=== PATIENT | male | born 1990 | race Caucasian/White ===

== ENCOUNTER 2020-05-25 20:24 | Emergency (ER) | payer BC ==
[~2020-05-25] VITALS: Ht 193 cm; Wt 83.9 kg
[~2020-05-25 20:24] MED LIST: CLON.5 PO; MIRALAX17 GM PO; PANT40 PO; Prozac20 MG PO; TUMS500 MG PO
[2020-05-25 20:50] LABS: BASOPHILS ABSOLUTE AUTO 0.02 K/mm3 (0.00-0.23); BASOPHILS PERCENT AUTO 0 % (0-2); EOSINOPHILS ABSOLUTE AUTO 0.05 K/mm3 (0.00-0.68); EOSINOPHILS PERCENT AUTO 1 % (0-6); Hematocrit 47.3 % (37.0-53.0); Hemoglobin 16.1 g/dL (13.5-17.5); IMMATURE GRAN ABSOLUTE AUTO 0.02 K/mm3 (0.00-0.10); IMMATURE GRAN PERCENT AUTO 0 % (0-1); LYMPHOCYTES ABSOLUTE AUTO 2.54 K/mm3 (0.84-5.20); LYMPHOCYTES PERCENT AUTO 30 % (21-46); MONOCYTES ABSOLUTE AUTO 0.49 K/mm3 (0.16-1.47); MONOCYTES PERCENT AUTO 6 % (4-13); Mean Corpuscular HGB 28.9 pg (26.0-34.0); Mean Corpuscular Volume 85 fL (80-100); Mean Platelet Volume 9.8 fL (9.1-12.4); NEUTROPHILS ABSOLUTE AUTO 5.25 K/mm3 (1.96-9.15); NEUTROPHILS PERCENT AUTO 63 % (41-73); Platelet Count 266 K/mm3 (150-400); RDW Coefficient Variation 12.7 % (11.7-14.2); RDW Standard Deviation 39.8 fL (35.1-46.3); Red Blood Cell Count 5.58 M/mm3 (4.30-5.90); White Blood Cell Count 8.37 K/mm3 (4.00-11.30)
[2020-05-25 21:07] LABS: Alanine Aminotransfer (ALT/SGP 41 U/L (12-78); Albumin, Blood 4.6 g/dL (3.4-5.0); Albumin/Globulin Ratio 1.3 (0.8-1.8); Alk Phos 80 U/L (50-136); Anion Gap 7 mmol/L (6-16); Aspartate Aminotrans (AST/SGOT 18 U/L (12-37); Bilirubin, Total 0.5 mg/dL (0.1-1.0); Blood Urea Nitrogen 9 mg/dL (8-24); Bun/Creatinine Ratio 10.8 (12.0-20.0); CO2, Blood 26 mmol/L (21-32); Calcium, Blood 9.2 mg/dL (8.5-10.1); Chloride, Blood 109 mmol/L (98-108); Creatinine, Blood 0.83 mg/dL (0.60-1.20); Globulin, Blood 3.5 g/dL (2.2-4.0); Glomerular Filtration Rate >60 (60-); Glucose, Blood 100 mg/dL (70-99); Potassium, Blood 3.5 mmol/L (3.5-5.5); Sodium, Blood 142 mmol/L (136-145); Total Protein, Blood 8.1 g/dL (6.4-8.2)
[2020-05-25 21:52] LABS: Cholesterol 244 mg/dL (50-200); Triglycerides 167 mg/dL (30-140)
[2020-05-25] MEDS ORDERED: Roxicodone5 MG PO (22:36)
[2020-05-25] MEDS ORDERED: ONDA4ODT MM (22:36)
== END 2020-05-25 22:48 | disposition home or self-care (01) ==
LOC: ER 20:24
PROVIDERS: Emergency Medicine
DX: K85.90 Acute pancreatitis without necrosis or infection, unspecified (principal); Z79.899 Other long term (current) drug therapy
CPT/HCPCS: 36415; 80053; 82465; 83690; 84478; 85025; 96361; 96374; 96375; 99284-25; A9270; J1170; J1630; J2405; J7120

== ENCOUNTER → 2020-06-10 | Outpatient (CLI) | payer BC ==
[~2020-06-10] MED LIST changes: +Apple Cider Vi300 MG PO; +CENTRUM SILVER1 EAC2 PO; +ONDA4ODT MM; +Roxicodone5 MG PO
[2020-06-10 15:26] LABS: Alanine Aminotransfer (ALT/SGP 61 U/L (12-78); Albumin, Blood 4.2 g/dL (3.4-5.0); Albumin/Globulin Ratio 1.4 (0.8-1.8); Alk Phos 75 U/L (50-136); Anion Gap 1 mmol/L (6-16); Aspartate Aminotrans (AST/SGOT 25 U/L (12-37); Bilirubin, Total 0.4 mg/dL (0.1-1.0); Blood Urea Nitrogen 9 mg/dL (8-24); Bun/Creatinine Ratio 10.5 (12.0-20.0); CO2, Blood 32 mmol/L (21-32); Calcium, Blood 9.1 mg/dL (8.5-10.1); Chloride, Blood 107 mmol/L (98-108); Creatinine, Blood 0.86 mg/dL (0.60-1.20); Globulin, Blood 2.9 g/dL (2.2-4.0); Glomerular Filtration Rate >60 (60-); Glucose, Blood 92 mg/dL (70-99); Potassium, Blood 4.1 mmol/L (3.5-5.5); Sodium, Blood 140 mmol/L (136-145); Total Protein, Blood 7.1 g/dL (6.4-8.2)
== END ==
LOC: PLD 11:40 → LAB SHORT 11:40
PROVIDERS: Hospitalist
DX: K85.90 Acute pancreatitis without necrosis or infection, unspecified (principal)
CPT/HCPCS: 80053; 83690

== ENCOUNTER 2020-06-19 18:26 | Inpatient (IN) | payer BC ==
[~2020-06-19] VITALS: Ht 193 cm; Wt 86.5 kg
[~2020-06-19 18:26] MED LIST changes: -Apple Cider Vi300 MG PO; -CENTRUM SILVER1 EAC2 PO
[2020-06-19 19:05] LABS: BASOPHILS ABSOLUTE AUTO 0.03 K/mm3 (0.00-0.23); BASOPHILS PERCENT AUTO 0 % (0-2); EOSINOPHILS ABSOLUTE AUTO 0.04 K/mm3 (0.00-0.68); EOSINOPHILS PERCENT AUTO 1 % (0-6); Hematocrit 48.4 % (37.0-53.0); Hemoglobin 16.2 g/dL (13.5-17.5); IMMATURE GRAN ABSOLUTE AUTO 0.02 K/mm3 (0.00-0.10); IMMATURE GRAN PERCENT AUTO 0 % (0-1); LYMPHOCYTES ABSOLUTE AUTO 2.19 K/mm3 (0.84-5.20); LYMPHOCYTES PERCENT AUTO 28 % (21-46); MONOCYTES ABSOLUTE AUTO 0.42 K/mm3 (0.16-1.47); MONOCYTES PERCENT AUTO 5 % (4-13); Mean Corpuscular HGB Conc 33.5 g/dL (31.5-36.5); Mean Corpuscular Volume 87 fL (80-100); Mean Platelet Volume 9.7 fL (9.1-12.4); NEUTROPHILS ABSOLUTE AUTO 5.27 K/mm3 (1.96-9.15); NEUTROPHILS PERCENT AUTO 66 % (41-73); Platelet Count 251 K/mm3 (150-400); RDW Coefficient Variation 13.1 % (11.7-14.2); RDW Standard Deviation 41.7 fL (35.1-46.3); Red Blood Cell Count 5.58 M/mm3 (4.30-5.90); White Blood Cell Count 7.97 K/mm3 (4.00-11.30)
[2020-06-19 19:35] LABS: Alanine Aminotransfer (ALT/SGP 48 U/L (12-78); Albumin, Blood 4.7 g/dL (3.4-5.0); Albumin/Globulin Ratio 1.3 (0.8-1.8); Alk Phos 74 U/L (50-136); Anion Gap 5 mmol/L (6-16); Aspartate Aminotrans (AST/SGOT 19 U/L (12-37); Bilirubin, Total 0.5 mg/dL (0.1-1.0); Blood Urea Nitrogen 7 mg/dL (8-24); Bun/Creatinine Ratio 7.8 (12.0-20.0); CO2, Blood 28 mmol/L (21-32); Calcium, Blood 9.2 mg/dL (8.5-10.1); Chloride, Blood 107 mmol/L (98-108); Globulin, Blood 3.5 g/dL (2.2-4.0); Glomerular Filtration Rate >60 (60-); Glucose, Blood 98 mg/dL (70-99); Potassium, Blood 3.3 mmol/L (3.5-5.5); Sodium, Blood 140 mmol/L (136-145); Total Protein, Blood 8.2 g/dL (6.4-8.2)
--- NOTE | 2020-06-19 23:46 | NUR ---
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 NPO in acute pain, nauseated. On IV fluids & recieving Kt rider. Await admission.
[2020-06-20] MEDS ORDERED: CENTRUM SILVER1 EAC2 PO (00:10)
[2020-06-20] MEDS ORDERED: Apple Cider Vi300 MG PO (00:11)
--- NOTE | 2020-06-20 03:03 | NUR ---
29 year old Male with nausea & abd pain x 1 month had severe upper abd pain yesterday with pain radiating to back. Chronic pancreatitis since 2013 lap sera in 2015. Denies constipation but has had increasing difficult time tolerating diet for last months with vomiting breakfast yesterday & NPO since then. MRI screening completed faxed to MRI. Admin flu vaccine & continues to need pain & nausea med IV. On NS at 125 ml hr.
[2020-06-20 04:29] LABS: BASOPHILS ABSOLUTE AUTO 0.01 K/mm3 (0.00-0.23); BASOPHILS PERCENT AUTO 0 % (0-2); EOSINOPHILS ABSOLUTE AUTO 0.06 K/mm3 (0.00-0.68); EOSINOPHILS PERCENT AUTO 1 % (0-6); Hematocrit 40.6 % (37.0-53.0); Hemoglobin 13.8 g/dL (13.5-17.5); IMMATURE GRAN ABSOLUTE AUTO 0.01 K/mm3 (0.00-0.10); IMMATURE GRAN PERCENT AUTO 0 % (0-1); LYMPHOCYTES ABSOLUTE AUTO 2.22 K/mm3 (0.84-5.20); LYMPHOCYTES PERCENT AUTO 45 % (21-46); MONOCYTES ABSOLUTE AUTO 0.43 K/mm3 (0.16-1.47); MONOCYTES PERCENT AUTO 9 % (4-13); Mean Corpuscular HGB 29.4 pg (26.0-34.0); Mean Corpuscular Volume 86 fL (80-100); Mean Platelet Volume 9.7 fL (9.1-12.4); NEUTROPHILS ABSOLUTE AUTO 2.21 K/mm3 (1.96-9.15); NEUTROPHILS PERCENT AUTO 45 % (41-73); Platelet Count 182 K/mm3 (150-400); RDW Coefficient Variation 13.2 % (11.7-14.2); RDW Standard Deviation 41.1 fL (35.1-46.3); White Blood Cell Count 4.94 K/mm3 (4.00-11.30)
[2020-06-20 04:49] LABS: Alanine Aminotransfer (ALT/SGP 87 U/L (12-78); Albumin, Blood 3.4 g/dL (3.4-5.0); Alk Phos 64 U/L (50-136); Anion Gap 5 mmol/L (6-16); Aspartate Aminotrans (AST/SGOT 67 U/L (12-37); Bilirubin, Total 0.7 mg/dL (0.1-1.0); Blood Urea Nitrogen 7 mg/dL (8-24); Bun/Creatinine Ratio 8.2 (12.0-20.0); CHOL/HDL RATIO 4.6; CO2, Blood 28 mmol/L (21-32); Calcium, Blood 8.1 mg/dL (8.5-10.1); Chloride, Blood 111 mmol/L (98-108); Cholesterol 199 mg/dL (50-200); Creatinine, Blood 0.86 mg/dL (0.60-1.20); Glomerular Filtration Rate >60 (60-); Glucose, Blood 84 mg/dL (70-99); HDL Cholesterol 43 mg/dL (>39); LDL/HDL RATIO 3.2; Low Density Lipoprotein Chol 139 mg/dL (0-110); Sodium, Blood 144 mmol/L (136-145); Triglycerides 87 mg/dL (30-140); Very Low Density Lipoprot Chol 17 mg/dL (6-28)
[2020-06-20 04:55] LABS: Albumin/Globulin Ratio 1.2 (0.8-1.8); Globulin, Blood 2.8 g/dL (2.2-4.0)
[2020-06-20 04:56] LABS: Total Protein, Blood 6.2 g/dL (6.4-8.2)
--- NOTE | 2020-06-20 06:38 | NUR ---
29 year old MAle has MRI pending for ideopathic pancreatitis reoccuring since 2012. He has upper abd pain which is sharpo & radiates to back. Medicated for pain & nausea several times with helpful; effect. Kpad to abd provided. HIV test pending.
--- NOTE | 2020-06-20 17:20 | NUR ---
SHIFT SUMMARY REPORTS PAIN PRIMARILY IN EPIGASTRIC REGION. WORSENS WITH MOBILITY. NINIMAL NAUSEA SINCE ZOFRAN THIS MORNING. MRI COMPLETED THIS MORNING AND TOLERATED WELL ACCORDING TO HIM. REMAINS NPO. IV FLUIDS INFUSING WITH NO PROBLEM. WILL REPORT CONDITION TO ONCOMING SHIFT.
--- NOTE | 2020-06-20 23:53 | NUR ---
1933 PT RESTING COMFORTABLY IN BED; CHEERFUL.
--- NOTE | 2020-06-21 02:51 | NUR ---
SHIFT SUMMARY: 29 Y/O MALE RESTED COMFORTABLY ALL SHIFT; PT DID C/O ABD PAIN (RATED 7/10) AND NAUSEA WITH DILAUDID 0.5MG IVP GIVEN X 2 AND ZOFRAN 4MG IVP GIVEN X 1 WITH RELIEF FELT; VOIDING CLEAR YELLOW URINE; HAPPY AND COOPERATIVE; ALERT AND ORIENTED X 4; NPO; BED LOW POSITION WITH CALL LIGHT AT SIDE.
[2020-06-21 14:10] LABS: FINAL INTERPRETATION Negative (.); HIV 1 AB Negative (Negative); HIV 2 AB Negative (Negative)
--- NOTE | 2020-06-21 18:15 | NUR ---
pt quite pleasant today. pain managed with avail meds. nausea handled with avail meds. dr did increase the dilaudid today. 1 mg helped pt much better. his s/o was in to visit today. also pleasant. pt continues to be npo. no new concerns today. pt independant in room. bed in low position, call lite in reach, calls aprop
--- NOTE | 2020-06-22 04:52 | NUR ---
ORE MIXER SUMMARY PT A&OX4, ABLE TO MAKE NEEDS KNOWN. PLEASANT AND COOPERATIVE TO CARE. PT MEDICATED FOR PAIN AND NAUSEA PER EMAR. NO C/O CP OR SOB. PT CALM AND RESTED IN BED T/O SHIFT. PT CONT TO BE ON NPO ORDERED. NO ACUTE CHANGES NOTED THIS SHIFT. BED AT LOWEST POSITION. CALL LIGHT WITHIN REACH.
--- NOTE | 2020-06-22 19:16 | NUR ---
SHIFT SUMMARY KIRIT COMPLAINED OF ABD PAIN AND NAUSEA, GOT IV DILAUDID AND IV ANTIEMETICS THREE TIMES THIS SHIFT. INDEP IN ROOM, BOYFRIEND VISITED. NPO, MIVF RUNNING. TOOK MEDS PRESCRIBED, CALL LIGHT IN REACH, REPORT GIVEN TO NIGHT NURSE
--- NOTE | 2020-06-23 00:08 | NUR ---
06/22/201944 PT RESTING COMFORTABLY IN BED WATCHING TV; DENIES PAIN OR NAUSEA.
--- NOTE | 2020-06-23 05:09 | NUR ---
SHIFT SUMMARY: 29 Y/O MALE RESTED MORE COMFORTABLY THIS SHIFT; PT HAD OCCASIONAL ABD PAIN RATED 6/10 WITH DILAUDID 1MG IVP GIVEN AND ZOFRAN 4MG IVP FOR NAUSEA WITH RELIEF FELT; NO EMESIS NOTED; NPO MAINTAINED; ALERT AND ORIENTED X 4; BED LOW POSITION WITH CALL LIGHT AT SIDE.
[2020-06-23] MEDS ORDERED: ONDA4ODT MM (14:09)
--- NOTE | 2020-06-23 14:37 | NUR ---
HAS ADVANCED WITH DIET TO REGULAR AND TOLERATING WELL. DISCHARGE ORDERS HAVE BEEN PLACED AND WILL DISCHARGE WHEN RIDE ARRIVES. PAIN MUCH IMPROVED WELL. IN GOOD SPIRITS AND WILL FOLLOW WITH .
== END 2020-06-23 15:10 | disposition home or self-care (01) | DRG 440 ==
LOC: ER 18:26 → MEDS 23:43
PROVIDERS: Physician Assistant; ADMIT Internal Medicine
PROC: 3E0234Z Introduction of Serum, Toxoid and Vaccine into Muscle, Percutaneous Approach (ICD-10-PCS; principal; 2020-06-20)
DX: K85.00 Idiopathic acute pancreatitis without necrosis or infection (principal); Z23 Encounter for immunization; E87.6 Hypokalemia
CPT/HCPCS: 36415; 74181; 80053; 80061; 83690; 85025; 86701; 86702; 93005; 93010; 96361; 96374; 96375; 96376; 99285-25; A9270; G0008; J1170; J1650; J1885; J2060; J2405; J2765; J3010; J3480; J7030; J7120; Q2038

== ENCOUNTER 2020-09-27 15:39 | Emergency (ER) | payer BC ==
[~2020-09-27] VITALS: Ht 190.5 cm; Wt 88.5 kg
[~2020-09-27 15:39] MED LIST changes: +Apple Cider Vi300 MG PO; +CENTRUM SILVER1 EAC2 PO
[2020-09-27 16:31] LABS: BASOPHILS ABSOLUTE AUTO 0.04 K/mm3 (0.00-0.23); BASOPHILS PERCENT AUTO 1 % (0-2); EOSINOPHILS ABSOLUTE AUTO 0.09 K/mm3 (0.00-0.68); EOSINOPHILS PERCENT AUTO 1 % (0-6); Hematocrit 49.1 % (37.0-53.0); Hemoglobin 16.5 g/dL (13.5-17.5); IMMATURE GRAN ABSOLUTE AUTO 0.03 K/mm3 (0.00-0.10); IMMATURE GRAN PERCENT AUTO 1 % (0-1); LYMPHOCYTES ABSOLUTE AUTO 2.39 K/mm3 (0.84-5.20); LYMPHOCYTES PERCENT AUTO 37 % (21-46); MONOCYTES PERCENT AUTO 6 % (4-13); Mean Corpuscular HGB 29.3 pg (26.0-34.0); Mean Corpuscular HGB Conc 33.6 g/dL (31.5-36.5); Mean Corpuscular Volume 87 fL (80-100); Mean Platelet Volume 9.8 fL (9.1-12.4); NEUTROPHILS ABSOLUTE AUTO 3.52 K/mm3 (1.96-9.15); NEUTROPHILS PERCENT AUTO 54 % (41-73); Platelet Count 257 K/mm3 (150-400); RDW Coefficient Variation 12.9 % (11.7-14.2); RDW Standard Deviation 41.5 fL (35.1-46.3); Red Blood Cell Count 5.64 M/mm3 (4.30-5.90); White Blood Cell Count 6.47 K/mm3 (4.00-11.30)
[2020-09-27 16:55] LABS: Alanine Aminotransfer (ALT/SGP 57 U/L (12-78); Albumin, Blood 4.5 g/dL (3.4-5.0); Albumin/Globulin Ratio 1.2 (0.8-1.8); Alk Phos 78 U/L (50-136); Anion Gap 3 mmol/L (6-16); Aspartate Aminotrans (AST/SGOT 21 U/L (12-37); Bilirubin, Total 0.5 mg/dL (0.1-1.0); Blood Urea Nitrogen 8 mg/dL (8-24); Bun/Creatinine Ratio 9.3 (12.0-20.0); CO2, Blood 30 mmol/L (21-32); Chloride, Blood 104 mmol/L (98-108); Creatinine, Blood 0.86 mg/dL (0.60-1.20); Globulin, Blood 3.6 g/dL (2.2-4.0); Glomerular Filtration Rate >60 (60-); Glucose, Blood 93 mg/dL (70-99); Potassium, Blood 3.8 mmol/L (3.5-5.5); Sodium, Blood 137 mmol/L (136-145); Total Protein, Blood 8.1 g/dL (6.4-8.2)
[2020-09-27] MEDS ORDERED: ONDA4ODT MM (17:24)
[2020-09-27] MEDS ORDERED: Roxicodone5 MG PO (17:24)
== END 2020-09-27 18:02 | disposition home or self-care (01) ==
LOC: ER 15:39
PROVIDERS: Physician Assistant
DX: K85.90 Acute pancreatitis without necrosis or infection, unspecified (principal)
CPT/HCPCS: 36415; 80053; 83690; 85025; 93005; 93010; 96361; 96374; 96375; 99284-25; J1170; J2405; J3010; J7030

== ENCOUNTER 2020-12-27 19:49 | Emergency (ER) | payer BC ==
[~2020-12-27] VITALS: Ht 185.4 cm; Wt 86.2 kg
[2020-12-27 20:42] LABS: BASOPHILS ABSOLUTE AUTO 0.02 K/mm3 (0.00-0.23); BASOPHILS PERCENT AUTO 0 % (0-2); EOSINOPHILS ABSOLUTE AUTO 0.09 K/mm3 (0.00-0.68); EOSINOPHILS PERCENT AUTO 1 % (0-6); Hematocrit 48.2 % (37.0-53.0); Hemoglobin 16.4 g/dL (13.5-17.5); IMMATURE GRAN ABSOLUTE AUTO 0.02 K/mm3 (0.00-0.10); IMMATURE GRAN PERCENT AUTO 0 % (0-1); LYMPHOCYTES ABSOLUTE AUTO 3.39 K/mm3 (0.84-5.20); LYMPHOCYTES PERCENT AUTO 42 % (21-46); MONOCYTES PERCENT AUTO 6 % (4-13); Mean Corpuscular Volume 85 fL (80-100); Mean Platelet Volume 9.7 fL (9.1-12.4); NEUTROPHILS ABSOLUTE AUTO 4.06 K/mm3 (1.96-9.15); NEUTROPHILS PERCENT AUTO 50 % (41-73); Platelet Count 283 K/mm3 (150-400); RDW Coefficient Variation 12.7 % (11.7-14.2); RDW Standard Deviation 39.9 fL (35.1-46.3); Red Blood Cell Count 5.65 M/mm3 (4.30-5.90); White Blood Cell Count 8.08 K/mm3 (4.00-11.30)
[2020-12-27 21:00] LABS: Alanine Aminotransfer (ALT/SGP 48 U/L (12-78); Albumin, Blood 4.3 g/dL (3.4-5.0); Albumin/Globulin Ratio 1.2 (0.8-1.8); Alk Phos 75 U/L (50-136); Anion Gap 4 mmol/L (6-16); Aspartate Aminotrans (AST/SGOT 15 U/L (12-37); Bilirubin, Total 0.6 mg/dL (0.1-1.0); Blood Urea Nitrogen 6 mg/dL (8-24); Bun/Creatinine Ratio 6.2 (12.0-20.0); CO2, Blood 29 mmol/L (21-32); Calcium, Blood 8.4 mg/dL (8.5-10.1); Chloride, Blood 107 mmol/L (98-108); Creatinine, Blood 0.97 mg/dL (0.60-1.20); Globulin, Blood 3.7 g/dL (2.2-4.0); Glomerular Filtration Rate >60 (60-); Glucose, Blood 90 mg/dL (70-99); Potassium, Blood 3.4 mmol/L (3.5-5.5); Sodium, Blood 140 mmol/L (136-145)
[2020-12-27] MEDS ORDERED: CREON DR 12,001 EACH (22:33)
[2020-12-28] MEDS ORDERED: ONDA4ODT MM (01:38)
[2020-12-28] MEDS ORDERED: Norco 5-325 Ta1 EACH PO (01:38)
== END 2020-12-28 02:01 | disposition home or self-care (01) ==
LOC: ER 19:49
PROVIDERS: Physician Assistant
DX: K85.80 Other acute pancreatitis without necrosis or infection (principal)
CPT/HCPCS: 36415; 80053; 83690; 85025; 96361; 96374; 96375; 99284-25; A9270; J1790; J2270; J2405; J7030